=== PATIENT | female | born 1930 | race Caucasian/White ===

== ENCOUNTER 2017-02-02 14:22 | Emergency (ER) | payer OTHER, BC ==
[~2017-02-02] VITALS: Ht 154.9 cm; Wt 66.1 kg
[~2017-02-02 14:22] MED LIST: ADVAIR HFA120 INHAL1 IH; ANIMAL CHEWS1 EACH PO; CALCIUM CARB1 TABLET PO; DOCUSATE SODIU100 MG PO; FISH OIL SOFTG1 EAC2 PO; LEVOTHROID50 MCG PO; LIDODERM 5% P1 PATCH TD; LIPITOR20 MG PO; LISINOPRIL10 MG PO; LOPRESSOR50 MG PO; Levothroid,Synthroid PO; Lipitor PO; Lopressor PO; METOPROLOL TART50 MG PO; Oscal 500 w/Vitamin PO; PANTOPRAZOLE SO40 MG PO; PERCOCET 5/31 TABLET PO; PERSANTINE50 MG PO; POLYETHYLENE GL17 GM PO; PRINIVIL5 MG PO; Pepcid PO; Pletal PO; SENNA-TIME S T1 EACH PO; SYNTHROID75 MCG PO; THERAGRAN1 TABLET PO; Tears Naturale II,Ar BOTH EYES; Tylenol Regular Stre PO; ZOLOFT50 MG PO; Zestril,Prinivil PO
[2017-02-02] MEDS ORDERED: VANTIN100 MG PO (19:00)
[2017-02-02 19:41] VITALS: BP 188/90
== END 2017-02-02 19:47 | disposition home or self-care (01) ==
LOC: EME 14:22
DX: S52.502A Unspecified fracture of the lower end of left radius, initial encounter for closed fracture (principal); S52.602A Unspecified fracture of lower end of left ulna, initial encounter for closed fracture; I69.354 Hemiplegia and hemiparesis following cerebral infarction affecting left non-dominant side; W10.9XXA Fall (on) (from) unspecified stairs and steps, initial encounter; E78.5 Hyperlipidemia, unspecified; I10 Essential (primary) hypertension; E03.9 Hypothyroidism, unspecified; Z87.891 Personal history of nicotine dependence
CPT/HCPCS: 73100; 73110; 99281; 99284; J0696; J2270; J7050

== ENCOUNTER 2017-03-25 14:40 | Emergency (ER) | payer OTHER, BC ==
[~2017-03-25] VITALS: Ht 152.4 cm; Wt 98.4 kg
[~2017-03-25 14:40] MED LIST changes: +VANTIN100 MG PO
[2017-03-25 14:51] VITALS: BP 129/64
[2017-03-25] MEDS ORDERED: OXYCODONE-ACET500 ML PO (18:02)
== END 2017-03-25 18:57 | disposition home or self-care (01) ==
LOC: EME 14:40
PROC: 2W39X1Z Immobilization of Left Upper Extremity using Splint (ICD-10-PCS; principal; 2017-03-25)
DX: S52.502A Unspecified fracture of the lower end of left radius, initial encounter for closed fracture (principal); S52.602A Unspecified fracture of lower end of left ulna, initial encounter for closed fracture; S62.641A Nondisplaced fracture of proximal phalanx of left index finger, initial encounter for closed fracture; S00.93XA Contusion of unspecified part of head, initial encounter; W01.198A Fall on same level from slipping, tripping and stumbling with subsequent striking against other object, initial encounter; I10 Essential (primary) hypertension; Z86.73 Personal history of transient ischemic attack (TIA), and cerebral infarction without residual deficits; Z88.0 Allergy status to penicillin; Z87.891 Personal history of nicotine dependence; Z88.8 Allergy status to other drugs, medicaments and biological substances
CPT/HCPCS: 73090; 73140; 99281; 99284

== ENCOUNTER 2017-04-24 08:42 | Emergency (ER) | payer OTHER, BC ==
[~2017-04-24] VITALS: Ht 160 cm; Wt 62.4 kg
[~2017-04-24 08:42] MED LIST changes: +OXYCODONE-ACET500 ML PO
[2017-04-24 09:13] LABS: EOSINOPHIL (%) 0.2 % (0-5); IMMATURE GRANULOCYTE (%) 0.3 % (0.0-0.7); INSTRUMENT ABS NEUTROPHIL CT 5.3 K/uL; LYMPHOCYTE COUNT 0.5 K/uL (1.0-2.8); MCH 31.7 PG (29.0-34.0); MCHC 33.2 G/DL (30.0-36.0); MCV 95.5 FL (83-99); MEAN PLAT.VOLUME 9.7 uM^3 (9.5-12.4); MONOCYTE (%) 11.2 % (3-12); MONOCYTE COUNT 0.7 K/uL (0-0.8); NEUTROPHIL (%) 80.1 % (45-76); NEUTROPHIL COUNT 5.3 K/uL (1.8-6.4); PLATELET COUNT 151 K/uL (156-360); RBC DIS.WIDTH-CV 13.2 % (11.8-14.6); RBC DIS.WIDTH-SD 47.2 % (39-53); RED BLOOD COUNT 3.98 M/uL (3.80-5.20); WHITE BLOOD COUNT 6.6 K/uL (4.1-10.2)
[2017-04-24 09:23] LABS: CHLORIDE 104 mEq/L (99-109); POTASSIUM 3.8 mEq/L (3.7-5.4); SODIUM 135 mEq/L (136-147)
[2017-04-24 09:26] LABS: GLUCOSE 143 mg/dL (70-99)
[2017-04-24 09:27] LABS: ANION GAP 12 MEQ/L (2-14)
[2017-04-24 09:28] LABS: TOTAL BILIRUBIN 0.7 mg/dL (0.0-1.0)
[2017-04-24 09:29] LABS: ALKALINE PHOSPHATASE 92 IU/L (3-129); GFR ESTIMATE (CALCULATED) 32 mL/min/
[2017-04-24 09:30] LABS: UREA NITROGEN (BUN) 29 mg/dL (9-23)
[2017-04-24 09:32] LABS: CREATINE KINASE 651 IU/L (1-294); TOTAL CK 651 IU/L (1-294)
[2017-04-24 09:33] LABS: TROP-I INTERPRETATION NEGATIVE; TROPONIN-I 0.03 ng/mL (0.0-0.30)
[2017-04-24 09:38] LABS: CK-MB 4.8 ng/mL (0.0-4.9)
[2017-04-24 10:20] LABS: ADD MIUA? YES; BILIRUBIN NEGATIVE; BLOOD NEGATIVE; COLOR YELLOW ((YELLOW)); GLUCOSE (STRIP) NEGATIVE; KETONES NEGATIVE; LEUKOCYTES NEGATIVE; NITRITE NEGATIVE; PROTEIN (STRIP) 30; SPECIFIC GRAVITY 1.023 (1.000-1.030); UROBILINOGEN 0.2 MG/DL (0.2-1.0)
[2017-04-24 10:25] LABS: BACTERIA 1+ /HPF; EPITHELIAL CELLS RARE /HPF; HYALINE CASTS 0-5 /LPF; MUCUS TRACE /LPF; RED BLOOD CELLS 0-5 /HPF (0-5); UCUL ADDED? NO; WHITE BLOOD CELLS 0-5 /HPF (0-5)
[2017-04-24 15:36] VITALS: BP 156/81
== END 2017-04-24 15:38 | disposition home or self-care (01) ==
LOC: EME 08:42
PROVIDERS: Emergency Medicine
DX: R53.1 Weakness (principal); R19.7 Diarrhea, unspecified; W07.XXXA Fall from chair, initial encounter; E78.5 Hyperlipidemia, unspecified; I10 Essential (primary) hypertension; E03.9 Hypothyroidism, unspecified; I69.354 Hemiplegia and hemiparesis following cerebral infarction affecting left non-dominant side; F32.9 Major depressive disorder, single episode, unspecified; Z88.0 Allergy status to penicillin; Z88.8 Allergy status to other drugs, medicaments and biological substances; Z87.891 Personal history of nicotine dependence
CPT/HCPCS: 71010; 72100; 80053; 81003; 82550; 82553; 84484; 85025; 87493; 93005; 99281; 99284; G8978 GP CM; G8979 GP CI; G8980 GP CM; G8987 GO CM; G8988 GO CJ; G8989 GO CM; J7030